=== PATIENT | female | born 1975 | race Caucasian/White ===

== ENCOUNTER 2017-02-06 09:27 | Emergency (ER) | payer MEDICAID ==
[2017-02-06] MEDS ORDERED: Aspirin 81 MG Tab.Chew ONE (09:32)
[2017-02-06 09:40] VITALS: BP 157/115
[2017-02-06] MEDS ORDERED: Alum Hydrox/Mag Hydrox/Simeth 15 ML, Lidocaine 2% 15 ML PO ONE ×2 (09:53)
[2017-02-06] MEDS ORDERED: Sodium Chloride 0.9% 10 ML Syringe FLUSH PRN (10:16)
[2017-02-06] MEDS ORDERED: Labetalol 20 MG/4 ML Syringe IVPUSH ONE (10:16)
--- NOTE | 2017-02-06 11:27 | EDM.PDOC ---
ED HISTORY OF PRESENT ILLNESS - General Chief Complaint: Chest Pain Stated Complaint: CHEST PAINS Time Seen by Provider: 02/06/17 09:45 Source: Reports: Patient History Limitations: Reports: No limitations - History of Present Illness INITIAL COMMENTS - FREE TEXT/NARRATIVE: History of present illness: [41-year-old female is presenting with chest pressure came on at midnight. It was associated with nausea vomiting diaphoresis but no shortness of breath. She 's had this off and on before but never this bad. Reviewing her medical records we find that she has a hiatal hernia. She also gives a history of reflux esophagitis with nausea vomiting and vomiting every other day. She is a smoker and admits to drinking probably at least twice a week or every other day. She has no prior cardiac history. She takes omeprazole 40 mg per day.] Review of systems: As per history of present illness and below otherwise all systems reviewed and negative. Past medical history: As per history of present illness and as reviewed below otherwise noncontributory. Surgical history: As per history of present illness and as reviewed below otherwise noncontributory. Social history: No reported history of drug or alcohol abuse. Family history: As per history of present illness and as reviewed below otherwise noncontributory. Physical exam: HEENT: Atraumatic, normocephalic, pupils reactive, negative for conjunctival pallor or scleral icterus, mucous membranes moist, throat clear, neck supple, nontender, trachea midline. Lungs: Clear to auscultation, breath sounds equal bilaterally, chest nontender. Heart: S1S2, regular, negative for clicks, rubs, or JVD. Abdomen: Her abdomen is protuberant with tenderness to palpation in the epigastric area. No right upper quadrant tenderness. Bowel sounds are active no masses. Pelvis: Stable nontender. Genitourinary: Deferred. Rectal: Deferred. Extremities: Atraumatic, negative for cords or calf pain. Neurovascular unremarkable. Neuro: Awake, alert, oriented. Exam nonfocal. Diagnostics: [EKG is normal troponin is normal d-dimer is normal chest x-ray is unremarkable CBC and complete metabolic panel and UA were done the urinalysis is suspicious for UTI. Her white count is 15,000.] Therapeutics: [She was given a GI cocktail which helped her pain some] Impression: [My suspicion is that her reflux esophagitis and hiatal hernia are the cause of her chest pressure. We're going to increase and recommend that she increase her omeprazole to 40 mg twice a day. Recommending that she stop smoking and avoid alcohol and if after a couple of months of doing this she still having trouble she could be a candidate for hiatal hernia surgery and this was discussed with her.] Plan: [Increase omeprazole to twice a day] Definitive disposition and diagnosis as appropriate pending reevaluation and review of above. - Related Data Allergies/ADRs: Allergies Allergy/AdvReac Type Severity Reaction Status Date / Time Penicillins Allergy Intermediate Cannot Verified 02/28/15 07:52 Remember amoxicillin Allergy Cannot Verified 02/28/15 07:52 Remember naproxen Allergy Cannot Verified 02/28/15 07:52 Remember Home Meds: Home Meds Omeprazole [Omeprazole] 40 mg PO DAILY 06/01/14 [History] ALPRAZolam [Xanax] 1 mg PO BID PRN 02/26/15 [History] ARIPiprazole [Abilify] 5 mg PO DAILY 02/26/15 [History] Amphetamine/Dextroamphetamine [Adderall XR] 02/06/17 [History] Zolpidem Tartrate [Zolpidem Tartrate] 02/06/17 [History] Past Medical History Psychiatric History: Reports: ADD, Depression - Past Surgical History GI Surgical History: Reports: Appendectomy, Hernia repair/other Social & Family History - Tobacco Use Smoking Status *Q: Current Every Day Smoker Years of Tobacco use: 30 Packs/Tins Daily: 0.5 Used Tobacco, but Quit: No Second Hand Smoke Exposure: Yes - Alcohol Use Days Per Week of Alcohol Use: 3 Number of Drinks Per Day: 2 Total Drinks Per Week: 6 - Recreational Drug Use Recreational Drug Use: Yes Drug Use in Last 12 Months: No Recreational Drug Type: Reports: Marijuana/Hashish, Methamphetamine Recreational Drug Use Frequency: Not Used In Over 1 Year ED ROS GENERAL - Review of Systems Review Of Systems: ROS reveals no pertinent complaints other than HPI. ED EXAM, GENERAL - Physical Exam Exam: See Below Course - Vital Signs Last Recorded V/S: Last Vital Signs Temp 36.3 C 02/06/17 09:46 Pulse 104 H 02/06/17 09:46 Resp 18 02/06/17 09:46 BP 157/115 H 02/06/17 09:46 Pulse Ox 100 02/06/17 09:46 - Orders/Labs/Meds Orders: Active Orders 24 hr Category Date Time Status EKG Documentation Completion [RC] ASDIRECTED Care 02/06/17 09:52 Active Chest 1V Frontal [CR] Stat Exams 02/06/17 09:51 Taken CULTURE URINE [RM] Stat Lab 02/06/17 11:19 Uncollected Sodium Chloride 0.9% [Saline Flush] Med 02/06/17 10:16 Active 10 ml FLUSH ASDIRECTED PRN Saline Lock Insert [OM.PC] Routine Oth 02/06/17 10:16 Ordered EKG 12 Lead [EK] Stat Ther 02/06/17 09:51 Ordered Medication Orders Sodium Chloride (Saline Flush) 10 ml FLUSH ASDIRECTED PRN PRN Reason: Keep Vein Open Last Admin: 02/06/17 10:26 Dose: 10 ml Labs: Laboratory Tests 02/06/17 02/06/17 02/06/17 Range/Units 10:00 10:00 10:00 WBC 15.4 H (4.5-11.0) K/uL RBC 4.91 (3.30-5.50) M/uL Hgb 15.8 H (12.0-15.0) g/dL Hct 46.3 (36.0-48.0) % MCV 94 (80-98) fL MCH 32 H (27-31) pg MCHC 34 (32-36) % Plt Count 265 (150-400) K/uL Neut % (Auto) 69 H (36-66) % Lymph % (Auto) 23 L (24-44) % [place]ff[place] % (Auto) 7 H (2-6) % Eos % (Auto) 1 L (2-4) % Baso % (Auto) 0 (0-1) % PT 10.6 (9.5-12.0) sec INR 1.00 (0.80-1.20) D-Dimer, Quantitative < 100 (0.0-400.0) ng/mL Sodium (140-148) mmol/L Potassium (3.6-5.2) mmol/L Chloride (100-108) mmol/L Carbon Dioxide (21-32) mmol/L Anion Gap (5.0-14.0) mmol/L BUN (7-18) mg/dL Creatinine (0.6-1.0) mg/dL Est Cr Clr Drug Dosing mL/min Estimated GFR (MDRD) (>60) Glucose (74-106) mg/dL Calcium (8.5-10.1) mg/dL Total Bilirubin (0.2-1.0) mg/dL AST (15-37) U/L ALT (12-78) U/L Alkaline Phosphatase (46-116) U/L Troponin I (0.000-0.056) ng/mL Total Protein (6.4-8.2) g/dL Albumin (3.4-5.0) g/dL Globulin (2.3-3.5) g/dL Albumin/Globulin Ratio (1.2-2.2) Urine Color Urine Appearance Urine pH (4.5-8.0) Ur Specific [place] (1.008-1.030) Urine Protein (NEGATIVE) mg/dL Urine Glucose (UA) (NEGATIVE) mg/dL Urine Ketones (NEGATIVE) mg/dL Urine Occult Blood (NEGATIVE) Urine Nitrite (NEGATIVE) Urine Bilirubin (NEGATIVE) Urine Urobilinogen (NORMAL) mg/dL Ur Leukocyte Esterase (NEGATIVE) Urine RBC (0-5) Urine WBC (0-5) Ur Epithelial Cells Amorphous Sediment Urine Bacteria Urine Mucus Ethyl Alcohol mg/dL 02/06/17 02/06/17 02/06/17 Range/Units 10:00 10:00 11:04 WBC (4.5-11.0) K/uL RBC (3.30-5.50) M/uL Hgb (12.0-15.0) g/dL Hct (36.0-48.0) % MCV (80-98) fL MCH (27-31) pg MCHC (32-36) % Plt Count (150-400) K/uL Neut % (Auto) (36-66) % Lymph % (Auto) (24-44) % [place]ff[place] % (Auto) (2-6) % Eos % (Auto) (2-4) % Baso % (Auto) (0-1) % PT (9.5-12.0) sec INR (0.80-1.20) D-Dimer, Quantitative (0.0-400.0) ng/mL Sodium 142 (140-148) mmol/L Potassium 3.6 (3.6-5.2) mmol/L Chloride 101 (100-108) mmol/L Carbon Dioxide 29 (21-32) mmol/L Anion Gap 12.2 (5.0-14.0) mmol/L BUN 17 (7-18) mg/dL Creatinine 1.0 (0.6-1.0) mg/dL Est Cr Clr Drug Dosing 57.96 mL/min Estimated GFR (MDRD) > 60 (>60) Glucose 109 H (74-106) mg/dL Calcium 9.3 (8.5-10.1) mg/dL Total Bilirubin 0.4 (0.2-1.0) mg/dL AST 19 (15-37) U/L ALT 27 (12-78) U/L Alkaline Phosphatase 54 (46-116) U/L Troponin I < 0.017 (0.000-0.056) ng/mL Total Protein 7.7 (6.4-8.2) g/dL Albumin 4.0 (3.4-5.0) g/dL Globulin 3.7 H (2.3-3.5) g/dL Albumin/Globulin Ratio 1.1 L (1.2-2.2) Urine Color Yellow Urine Appearance Cloudy Urine pH 6.0 (4.5-8.0) Ur Specific [place] 1.025 (1.008-1.030) Urine Protein Negative (NEGATIVE) mg/dL Urine Glucose (UA) Normal (NEGATIVE) mg/dL Urine Ketones Negative (NEGATIVE) mg/dL Urine Occult Blood Negative (NEGATIVE) Urine Nitrite Positive H (NEGATIVE) Urine Bilirubin Small (NEGATIVE) Urine Urobilinogen Normal (NORMAL) mg/dL Ur Leukocyte Esterase Negative (NEGATIVE) Urine RBC 0-5 (0-5) Urine WBC 10-20 H (0-5) Ur Epithelial Cells Many Amorphous Sediment Not seen Urine Bacteria Many Urine Mucus Many Ethyl Alcohol < 3 mg/dL Meds: Medications Generic Name Dose Route Start Last Admin Trade Name Freq PRN Reason Stop Dose Admin Sodium Chloride 10 ml 02/06/17 10:16 02/06/17 10:26 Saline Flush FLUSH 10 ml ASDIRECTED PRN Administration Keep Vein Open Discontinued Medications Generic Name Dose Route Start Last Admin Trade Name Freq PRN Reason Stop Dose Admin Aspirin Confirm 02/06/17 09:32 02/06/17 09:48 Aspirin Administered 02/06/17 09:33 324 mg Dose Administration 324 mg .ROUTE .STK-MED ONE Al Hydroxide/Mg Hydroxide 15 0 ml 02/06/17 09:53 02/06/17 10:05 ml/ Lidocaine HCl 15 ml PO 02/06/17 09:54 30 ml ONETIME ONE Administration Labetalol HCl 20 mg 02/06/17 10:16 02/06/17 10:25 Normodyne IVPUSH 02/06/17 10:17 20 mg NOW ONE Administration Departure - Departure Time of Disposition: 11:26 Disposition: Home, Self-Care 01 Condition: good Clinical Impression: Hernia, hiatal, Reflux esophagitis Forms: ED Department Discharge Additional Instructions: As we discussed advised as to stop smoking and avoid alcohol and increase your omeprazole to 40 mg twice per day. If after a couple of months of doing this he is still having trouble it could be that he would be a good candidate for certain tree on your hiatal hernia - My Orders Last 24 Hours: My Active Orders 02/06/17 09:51 Chest 1V Frontal [CR] Stat EKG 12 Lead [EK] Stat 02/06/17 09:52 EKG Documentation Completion [RC] ASDIRECTED 02/06/17 10:16 Sodium Chloride 0.9% [Saline Flush] 10 ml FLUSH ASDIRECTED PRN Saline Lock Insert [OM.PC] Routine 02/06/17 11:19 CULTURE URINE [RM] Stat - Assessment/Plan Last 24 Hours: My Active Orders 02/06/17 09:51 Chest 1V Frontal [CR] Stat EKG 12 Lead [EK] Stat 02/06/17 09:52 EKG Documentation Completion [RC] ASDIRECTED 02/06/17 10:16 Sodium Chloride 0.9% [Saline Flush] 10 ml FLUSH ASDIRECTED PRN Saline Lock Insert [OM.PC] Routine 02/06/17 11:19 CULTURE URINE [RM] Stat
--- NOTE | 2017-02-07 11:23 | CR ---
Chest 1V Frontal INDICATION: chest pain FINDINGS: Comparison 07/17/2015. No change. Negative AP portable chest x-ray.
== END 2017-02-06 11:34 | disposition home or self-care (01) ==
LOC: JP.ED 09:27
DX: K21.0 Gastro-esophageal reflux disease with esophagitis (principal); K44.9 Diaphragmatic hernia without obstruction or gangrene; F32.9 Major depressive disorder, single episode, unspecified; F17.210 Nicotine dependence, cigarettes, uncomplicated; Z88.0 Allergy status to penicillin; Z88.1 Allergy status to other antibiotic agents; Z88.8 Allergy status to other drugs, medicaments and biological substances; Z79.899 Other long term (current) drug therapy; Z90.49 Acquired absence of other specified parts of digestive tract; Z98.890 Other specified postprocedural states
CPT/HCPCS: 36415; 71010; 80053; 81001; 84484; 85025; 85379; 85610; 87086; 87088; 87186; 93005; 96374; 99285; A9270; G0480; J7050

== ENCOUNTER 2017-02-22 06:27 | Emergency (ER) | payer MEDICAID ==
[2017-02-22] MEDS ORDERED: Ondansetron 4 MG/2 ML SDV IVPUSH ONE (07:00)
[2017-02-22] MEDS ORDERED: Ketorolac 30 MG/ML SDV IVPUSH ONE (07:00)
[2017-02-22] MEDS ORDERED: diphenhydrAMINE 50 MG/ML SDV IVPUSH ONE (07:01)
[2017-02-22] MEDS ORDERED: Sodium Chloride 0.9% 10 ML Syringe FLUSH PRN (07:02)
--- NOTE | 2017-02-22 07:05 | EDM.PDOC ---
ED HPI HEADACHE COMPLAINT - General Chief Complaint: Headache Stated Complaint: HEADACHE PAST TWO DAYS Time Seen by Provider: 02/22/17 06:55 Source: Reports: Patient, RN notes reviewed History Limitations: Reports: No limitations - History of Present Illness INITIAL COMMENTS - FREE TEXT/NARRATIVE: 42-year-old female presents emergency department for a complaint of migraine type headache she has no history of migraine usually gets about 2 per year. This particular event has been going on for the last couple days she has nausea and vomiting frontal headache pain on the left side and photophobia - Related Data Allergies/ADRs: Allergies Allergy/AdvReac Type Severity Reaction Status Date / Time Penicillins Allergy Intermediate Cannot Verified 02/22/17 06:37 Remember amoxicillin Allergy Cannot Verified 02/22/17 06:37 Remember naproxen Allergy Cannot Verified 02/22/17 06:37 Remember Home Meds: Home Meds Omeprazole [Omeprazole] 40 mg PO DAILY 06/01/14 [History] ALPRAZolam [Xanax] 1 mg PO BID PRN 02/26/15 [History] ARIPiprazole [Abilify] 5 mg PO DAILY 02/26/15 [History] Amphetamine/Dextroamphetamine [Adderall XR] 30 mg PO DAILY 02/06/17 [History] Zolpidem Tartrate [Zolpidem Tartrate] 5 mg PO BEDTIME PRN 02/06/17 [History] Past Medical History Neurological History: Reports: Migraines Psychiatric History: Reports: ADD, Depression - Past Surgical History GI Surgical History: Reports: Appendectomy, Hernia repair/other Female Surgical History: Reports: section Social & Family History - Tobacco Use Smoking Status *Q: Current Every Day Smoker Years of Tobacco use: 25 Packs/Tins Daily: 0.5 Used Tobacco, but Quit: No Second Hand Smoke Exposure: Yes - Caffeine Use Caffeine Use: Reports: Energy drinks, Soda - Alcohol Use Days Per Week of Alcohol Use: 5 Number of Drinks Per Day: 4 Total Drinks Per Week: 20 - Recreational Drug Use Recreational Drug Use: No Drug Use in Last 12 Months: No Recreational Drug Type: Reports: Marijuana/Hashish, Methamphetamine Recreational Drug Use Frequency: Not Used In Over 1 Year ED ROS GENERAL - Review of Systems Review Of Systems: See Below Constitutional: Denies: fever, chills HEENT: Reports: Eye pain Respiratory: Reports: No Symptoms Cardiovascular: Reports: No symptoms GI/Abdominal: Reports: Nausea, Vomiting : Reports: no symptoms Neurological: Reports: Headache - Physical Exam Exam: See Below Exam Limited By: No limitations General Appearance: alert, WD/WN, no apparent distress Eye Exam: bilateral eye: normal fundi, normal inspection Head Exam: atraumatic, normocephalic Neck: normal inspection, supple, non-tender, full range of motion Respiratory/Chest: no respiratory distress, lungs clear, normal breath sounds, no accessory muscle use Cardiovascular: regular rate, rhythm, no murmur GI/Abdominal: soft, non tender Course - Vital Signs Last Recorded V/S: Last Vital Signs Temp 97.1 F 02/22/17 06:40 Pulse 84 02/22/17 08:02 Resp 16 02/22/17 08:02 BP 126/67 02/22/17 08:02 Pulse Ox 97 02/22/17 08:02 - Orders/Labs/Meds Orders: Active Orders 24 hr Category Date Time Status Peripheral IV Care [RC] . DIRECTED Care 02/22/17 07:02 Active Sodium Chloride 0.9% [Normal Saline] 1,000 ml Med 02/22/17 07:15 Active IV ASDIRECTED Sodium Chloride 0.9% [Normal Saline] 1,000 ml Med 02/22/17 08:00 Ordered IV ASDIRECTED Sodium Chloride 0.9% [Saline Flush] Med 02/22/17 07:02 Active 10 ml FLUSH ASDIRECTED PRN Peripheral IV Insertion Adult [OM.PC] Urgent Oth 02/22/17 07:02 Ordered Medication Orders Sodium Chloride (Normal Saline) 1,000 mls @ 999 mls/hr IV ASDIRECTED STEFAN Last Admin: 02/22/17 06:45 Dose: 999 mls/hr Sodium Chloride (Normal Saline) 1,000 mls @ 500 mls/hr IV ASDIRECTED STEFAN Last Admin: 02/22/17 08:04 Dose: 500 mls/hr Sodium Chloride (Saline Flush) 10 ml FLUSH ASDIRECTED PRN PRN Reason: Keep Vein Open Last Admin: 02/22/17 07:19 Dose: 10 ml Meds: Medications Generic Name Dose Route Start Last Admin Trade Name Freq PRN Reason Stop Dose Admin Sodium Chloride 1,000 mls @ 999 mls/hr 02/22/17 07:15 02/22/17 06:45 Normal Saline IV 999 mls/hr ASDIRECTED STEFAN Administration Sodium Chloride 1,000 mls @ 500 mls/hr 02/22/17 08:00 02/22/17 08:04 Normal Saline IV 500 mls/hr ASDIRECTED STEFAN Administration Sodium Chloride 10 ml 02/22/17 07:02 02/22/17 07:19 Saline Flush FLUSH 10 ml ASDIRECTED PRN Administration Keep Vein Open Discontinued Medications Generic Name Dose Route Start Last Admin Trade Name Freq PRN Reason Stop Dose Admin Dexamethasone 4 mg 02/22/17 07:47 02/22/17 08:04 Dexamethasone IVPUSH 02/22/17 07:48 4 mg ONETIME ONE Administration Diphenhydramine HCl 25 mg 02/22/17 07:01 02/22/17 07:17 Benadryl IVPUSH 02/22/17 07:02 25 mg ONETIME ONE Administration Haloperidol Lactate 5 mg 02/22/17 07:47 02/22/17 08:04 Haldol IVPUSH 02/22/17 07:48 5 mg ONETIME ONE Administration Ketorolac Tromethamine 30 mg 02/22/17 07:00 02/22/17 07:18 Toradol IVPUSH 02/22/17 07:01 30 mg ONETIME ONE Administration Ondansetron HCl 4 mg 02/22/17 07:00 02/22/17 07:15 Zofran IVPUSH 02/22/17 07:01 4 mg ONETIME ONE Administration Departure - Departure Time of Disposition: 08:49 Disposition: Home, Self-Care 01 Condition: good Clinical Impression: Migraine Forms: ED Department Discharge Additional Instructions: Resume previous medications, recommend resting today. Please followup with your primary care provider in 3-5 days if not better, please call return to the emergency department with worsening of symptoms. - My Orders Last 24 Hours: My Active Orders 02/22/17 07:02 Peripheral IV Care [RC] . DIRECTED Sodium Chloride 0.9% [Saline Flush] 10 ml FLUSH ASDIRECTED PRN Peripheral IV Insertion Adult [OM.PC] Urgent 02/22/17 07:15 Sodium Chloride 0.9% [Normal Saline] 1,000 ml IV ASDIRECTED 02/22/17 08:00 Sodium Chloride 0.9% [Normal Saline] 1,000 ml IV ASDIRECTED - Assessment/Plan Last 24 Hours: My Active Orders 02/22/17 07:02 Peripheral IV Care [RC] . DIRECTED Sodium Chloride 0.9% [Saline Flush] 10 ml FLUSH ASDIRECTED PRN Peripheral IV Insertion Adult [OM.PC] Urgent 02/22/17 07:15 Sodium Chloride 0.9% [Normal Saline] 1,000 ml IV ASDIRECTED 02/22/17 08:00 Sodium Chloride 0.9% [Normal Saline] 1,000 ml IV ASDIRECTED Plan: Assessment Acuity = acute Site and laterality = migraine without aura Etiology = unclear etiology Manifestations = none Location of injury = home Lab values = none Plan She had improvement with combination of Toradol, Zofran, fluids, Benadryl and Haldol she was able to get some relief from her headache and rest, plan is to go home rest follow up with primary care 3-5 days no improvement Patient was in agreement with the plan all questions were answered, they were instructed to return to the emergency department or call for worsening symptoms. This note was dictated using [employer] voice recognition software please call with any questions.
[2017-02-22] MEDS ORDERED: Sodium Chloride 0.9% 1,000 ML IV SCH ×2 (07:15→08:00)
[2017-02-22] MEDS ORDERED: Dexamethasone 4 MG/ML SDV IVPUSH ONE (07:47)
[2017-02-22] MEDS ORDERED: Haloperidol Lactate 5 MG/ML SDV IVPUSH ONE (07:47)
[2017-02-22 08:03] VITALS: BP 126/67
== END 2017-02-22 09:31 | disposition home or self-care (01) ==
LOC: JP.ED 06:27
DX: G43.909 Migraine, unspecified, not intractable, without status migrainosus (principal); F32.9 Major depressive disorder, single episode, unspecified; F17.210 Nicotine dependence, cigarettes, uncomplicated; Z90.49 Acquired absence of other specified parts of digestive tract; Z98.890 Other specified postprocedural states; Z79.899 Other long term (current) drug therapy; Z88.0 Allergy status to penicillin; Z88.1 Allergy status to other antibiotic agents; Z88.8 Allergy status to other drugs, medicaments and biological substances
CPT/HCPCS: 96374; 96375; 99284; J1100; J1200; J1630; J1885; J2405; J7040; J7050